=== PATIENT | male | born 1995 | race Asian ===

== ENCOUNTER 2017-09-18 02:16 | Observation (INO) | payer OTHER ==
[2017-09-18] MEDS ORDERED: Ondansetron INJ* 2 MG/ML VIAL IV ONE (02:35)
[2017-09-18] MEDS ORDERED: NS 0.9% 1000 ML* 1,000 ML IV ONE ×3 (02:35→06:06)
[2017-09-18] MEDS ORDERED: Pantoprazole IV* 40 MG IV ONE ×3 (02:35→05:18)
[2017-09-18 03:10] LABS: Hematocrit 32 % (42-52); Hemoglobin 10.8 g/dl (14.0-18.0); Mean Corpuscular HGB Conc 34 g/dl (31-36); Mean Corpuscular Hemoglobin 31 pg (27-31); Mean Corpuscular Volume 90 fL (80-94); Mean Platelet Volume 8 um3 (7.4-10.4); Red Blood Count 3.55 10^6/ul (4.0-5.4); Red Cell Distribution Width 13 % (10.5-15); White Blood Count 9.7 10^3/ul (3.5-10.8)
[2017-09-18 03:22] LABS: ALT 6 U/L (7-52); AST 12 U/L (13-39); Albumin 3.9 g/dL (3.2-5.2); Alkaline Phosphatase 37 U/L (34-104); Amylase 36 U/L (29-103); Anion Gap 6 mmol/L (2-11); BUN/Creatinine Ratio 69.8 (8-20); Blood Urea Nitrogen 44 mg/dL (6-24); C Reactive Protein < 1.00 mg/L (< 5.00); CO2 Carbon Dioxide 26 mmol/L (22-32); Calcium 8.7 mg/dL (8.6-10.3); Chloride 107 mmol/L (101-111); EGFR African American 206.8 (>60); EGFR Non-African American 160.8 (>60); Globulin 2.1 g/dL (2-4); Glucose 97 mg/dL (70-100); Lipase 18 U/L (11.0-82.0); Potassium 3.5 mmol/L (3.5-5.0); Sodium 139 mmol/L (133-145)
[2017-09-18] MEDS ORDERED: Magnesium CITRATE* 300 ML BTL PO ONE (03:40)
[2017-09-18] MEDS ORDERED: Bisacodyl SUPP* 10 MG SUPP PR ONE (03:41)
[2017-09-18 03:46] LABS: Immature Retic Fraction 0.31
[2017-09-18 03:47] LABS: Corrected Retic Count 0.6 % (0.5-1.5); Maturation Factor Retic 1.5
--- NOTE | 2017-09-18 04:59 | ED ---
Anjum Portillo Alfonso, scribed for Susanna Hester MD on 09/18/17 at 0240 . Complex/Multi-Sys Presentation - HPI Summary HPI Summary: This patient is a 22 year old M BIBA to [facility] with a chief complaint of two syncopal episodes earlier tonight. He states I collapsed twice in my dorm after I woke up and my stomach felt really weird, and I didnt realize I fell down I woke up and noticed I was on the floor. The patient rates the pain 0/10 in severity. Symptoms aggravated by nothing. Symptoms alleviated by spontaneous resolution. Patient reports 1 week of indigestion, bloating, nausea, loss of appetite, and dry heaving. Patient denies vomiting, and diarrhea. His last BM was in the afternoon. - History Of Current Complaint Chief Complaint: EDNauseaVomitDiarrh Hx Obtained From: Patient Onset/Duration: Sudden Onset, Lasting Hours, Resolved Timing: Intermittent, Lasting: Aggravating Factor(s): nothing Alleviating Factor(s): spontaneous resolution Associated Signs And Symptoms: Positive: Other - 1 week of indigestion, bloating , nausea, loss of appetite, and dry heaving. Patient denies vomiting, and diarrhea. - Allergies/Home Medications Allergies/Adverse Reactions: Allergies Allergy/AdvReac Type Severity Reaction Status Date / Time No Known Allergies Allergy Verified 09/18/17 02:25 Home Medications: Home Medications NK [No Home Medications Reported] 09/18/17 [History Confirmed 09/18/17] PMH/Surg Hx/FS Hx/Imm Hx Opthamlomology History: Denies: Hx Legally Blind EENT History: Denies: Hx Deafness Infectious Disease History: No Infectious Disease History: Denies: Traveled Outside the [place] in Last 30 Days - Family History Known Family History: Negative: Cardiac Disease, Diabetes - Social History Occupation: Student Lives: Dormitory/Roommates Alcohol Use: Occasionally Hx Substance Use: No Substance Use Type: Reports: None Hx Tobacco Use: No Smoking Status (MU): Never Smoked Tobacco Review of Systems Negative: Fever Positive: Other - 1 week of indigestion, bloating, nausea, loss of appetite, and dry heaving. Patient denies vomiting, and diarrhea. Positive: Syncope All Other Systems Reviewed And Are Negative: Yes Physical Exam - Summary Physical Exam Summary: VITAL SIGNS: Reviewed. GENERAL: Patient is a well-developed and nourished male who is lying comfortable in the stretcher. Patient is not in any acute respiratory distress. HEAD AND FACE: No signs of trauma. No ecchymosis, hematomas or skull depressions. No sinus tenderness. EYES: PERRLA, EOMI x 2, No injected conjunctiva, no nystagmus. EARS: Hearing grossly intact. Ear canals and tympanic membranes are within normal limits. MOUTH: Oropharynx within normal limits. NECK: Supple, trachea is midline, no adenopathy, no JVD, no carotid bruit, no c- spine tenderness, neck with full ROM. CHEST: Symmetric, no tenderness at palpation LUNGS: Clear to auscultation bilaterally. No wheezing or crackles. CVS: Regular rate and rhythm, S1 and S2 present, no murmurs or gallops appreciated. ABDOMEN: Soft, non-tender. No signs of distention. No rebound no guarding, and no masses palpated. Bowel sounds are hypoactive. RECTAL: Brown stool sent for occult blood. No hemorrhoids. EXTREMITIES: FROM in all major joints, no edema, no cyanosis or clubbing. NEURO: Alert and oriented x 3. No acute neurological deficits. Speech is normal and follows commands. SKIN: Pale, dry and warm Triage Information Reviewed: Yes Vital Signs On Initial Exam: Initial Vitals Temp Pulse Resp BP Pulse Ox 98 F 78 16 95/53 99 09/18/17 02:23 09/18/17 02:23 09/18/17 02:23 09/18/17 02:23 09/18/17 02:23 Vital Signs Reviewed: Yes - Adria Coma Scale Coma Scale Total: 15 Diagnostics - Vital Signs Vital Signs Temp Pulse Resp BP Pulse Ox 09/18/17 02:23 98 F 78 16 95/53 99 - Laboratory Result Diagrams: 09/18/17 03:00 09/18/17 03:00 Lab Statement: Any lab studies that have been ordered have been reviewed, and results considered in the medical decision making process. - Radiology Abd X-Ray Radiology Interpretation Completed By: ED Physician - constipation, Radiologist - Pending at this time. - EKG 0309 Cardiac Rate: NL EKG Rhythm: Sinus Rhythm - BPM 69 EKG Interpretation: Normal axis. No acute ischemic changes. Complex Multi-Symp Course/Dx Assessment/Plan: This patient is a 22 year old M BIBA to [facility] with a chief complaint of two syncopal episodes earlier tonight. He states I collapsed twice in my dorm after I woke up and my stomach felt really weird, and I didn t realize I fell down I woke up and noticed I was on the floor. The patient rates the pain 0/10 in severity. Symptoms aggravated by nothing. Symptoms alleviated by spontaneous resolution. Patient reports 1 week of indigestion, bloating, nausea, loss of appetite, and dry heaving. Patient denies vomiting, and diarrhea. His last BM was in the afternoon. An EKG reveals NSR. Abdominal XR reveals constipation. In the ED course the patient was given Zofran, Protonix , Dulcolax Supp, Citrate of Magnesia, and IV fluids. We discussed patient care with Dr. Araujo and they recommended admission. Patient will be admitted with follow up from Dr. Araujo. The patient is agreeable with this plan. - Diagnoses Provider Diagnoses: Upper GI bleed, Constipated - Physician Notifications Discussed Care Of Patient With: Mayela Araujo Time Discussed With Above Provider: 04:55 Instructed by Provider To: Other - Consulted Dr. Araujo (hospitalist) who agrees to admit. Discharge - Discharge Plan Condition: Stable Disposition: ADMITTED TO [facility] Referrals: No Primary Care Phys,NOPCP [Primary Care Provider] - The documentation as recorded by the Anjum salas Alfonso accurately reflects the service I personally performed and the decisions made by me, Susanna Hester MD.
[2017-09-18] MEDS ORDERED: Pantoprazole IV* 40 MG ONE (05:50)
[2017-09-18 05:52] LABS: Urine Bilirubin Negative (Negative); Urine Glucose Negative (Negative); Urine Nitrite Negative (Negative)
[2017-09-18] MEDS: Pantoprazole IV* 80 MG in NS 0.9% 250 ML* 250 ML IVPB SCH ×3 (06:03→17:28)
[2017-09-18] MEDS ORDERED: NS 0.9% 1000 ML* 1,000 ML IV SCH (06:15)
--- NOTE | 2017-09-18 07:40 | RAD ---
INDICATION: Nausea and constipation with syncopal episode. The patient reports taking Pepto-Bismol tablets. COMPARISON: None TECHNIQUE: Supine and upright views of the abdomen were obtained. FINDINGS: Punctate radiodense fragments overlying the expected location of the gastrointestinal tract are consistent with the report of taking Pepto-Bismol tablets. The small bowel and colon appear nondistended. No free intraperitoneal air is seen. No grossly abnormal or pathologic appearing calcifications are noted. Visualized bones are within normal limits for the patient's age. IMPRESSION: Normal abdominal radiograph.
--- NOTE | 2017-09-18 09:27 | HP ---
CC: [facility]* HISTORY AND PHYSICAL: DATE OF ADMISSION: 09/18/17 PRIMARY CARE PROVIDER: [facility]. CHIEF COMPLAINT: Syncope. 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 The patient states that, beginning last Thursday, he felt that his stomach was off. He describes having a lot of indigestion. He states he has been burping quite a bit and has been feeling bloating. He went to [facility] and was prescribed bismuth tablets. The patient states he was taking these over the last one week; however, did not improve his symptoms. The patient states that over the last couple of days, he has had a significant amount of burping and bloating. The patient states that he woke up at approximately midnight on the day of admission because of the discomfort in his abdomen. He was getting up to go to the bathroom and take bismuth tablets when the next thing he knew he woke up on the floor. The patient tried to climb up using the wall and again passed out. Once the patient came to again, he was able to call to his roommate's door and knock for help. The patient does admit to having a black stool this past Thursday morning. He denies any Advil or naproxen or aspirin use. However, he is not completely sure about the names of these medications. PAST MEDICAL HISTORY: None. PAST SURGICAL HISTORY: Circumcision. ALLERGIES: No known drug allergies. MEDICATIONS: Bismuth. FAMILY HISTORY: Mom is living; she is 49 and healthy. Dad is also living; he is 50 and healthy. SOCIAL HISTORY: The patient is a nonsmoker. He does not drink alcohol. 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 He is not . He has no children. REVIEW OF SYSTEMS: A complete 11-system review of systems is obtained, pertinent positives and negatives are as per HPI; and, in addition, the patient complains of poor appetite over the last one week. Otherwise review of systems is negative. PHYSICAL EXAMINATION GENERAL: The patient is a well-developed young, thin male sitting up in bed in no acute distress. VITAL SIGNS: Blood pressure 90/44, pulse 77, respirations 16, temp 98, O2 sat 100% on room air. HEENT: Pupils are equal. They are round. Extraocular muscles are intact. Oropharynx is clear. Oral mucosa is moist. There is no submandibular, cervical , or supraclavicular adenopathy. Thyroid is not enlarged. No thyroid nodules are noted. PULMONARY: Lungs are clear to auscultation bilaterally. CARDIAC: Normal S1, S2. Regular rate and rhythm. I do not appreciate any murmurs. ABDOMEN: Bowel sounds present. Abdomen is soft, nontender, nondistended. MUSCULOSKELETAL: There is no cyanosis or clubbing of the digits. There is full active range of motion of all 4 extremities. NEURO: Cranial nerves II through XII are grossly intact. Sensation is intact to light touch throughout. Strength is 5/5 and symmetric in both upper and lower extremities bilaterally. PSYCH: The patient is alert. He is oriented x3. Affect is appropriate. SKIN: Warm and dry. There are no rashes. DIAGNOSTIC STUDIES/LAB DATA: WBC 9.7, hemoglobin 10.8, hematocrit 32, platelets 185. INR is 1.27. Sodium 139, potassium 3.5, chloride 107, CO2 26, BUN 44, creatinine 0.63, glucose 97, calcium 8.7. Bilirubin 0.8, AST 12, ALT 6 , alk phos 37. CRP less than 1. Albumin 3.9, amylase 36, lipase 18. Urinalysis reveals clear urine with specific gravity of 1.023, and negative for signs of infection. Abdominal x-ray to my interpretation reveals stool within the colon; there is radiopaque flake-like material noted scattered within the abdomen. EKG reveals normal sinus rhythm with likely early repolarization. ASSESSMENT AND PLAN: Mr. Jain is a 22-year-old male with no significant past medical history or medication use who presents to the emergency room after having two syncopal episodes after awakening from sleep with abdominal discomfort. 1. Syncope. This likely represents vasovagal versus orthostatic syncope. The patient's blood pressure is currently slightly low; however, he is a thin young male, so his blood pressure may not be much higher than this at baseline. It is possible he became orthostatic secondary to a GI bleed. He has received 1 L of normal saline in the emergency room and will receive another 1 L bolus followed by 100 mL/hour. The patient did get up and walk to the bathroom in the ER and noted that initially when he stood he felt lightheaded; however, that did dissipate as he was up longer. 2. Likely upper gastrointestinal bleed. The patient describes having black stools. His hemoglobin and hematocrit are mildly reduced and this, in conjunction with the elevated BUN, makes me suspect he may be having an upper GI bleed. I question if the indigestion symptoms that he has been having are related to possibly a gastric ulcer. The patient will be started on Protonix as ordered by the ER provider. I will place a GI consultation for endoscopy later today. The patient denies any NSAID use; however, there is a slight language barrier and he is not completely sure of the medication names that I ask him about. 3. DVT prophylaxis. According to the Adult Thrombosis Prophylaxis Risk Factor Assessment Guide, the patient has a total risk factor score of 0 making him low risk. Ambulation will be utilized for DVT prophylaxis. 4. Code status is full. TIME SPENT: Fifty minutes were spent admitting this patient. [id number]/[facility] #: [id number] [facility]
[2017-09-18] MEDS ORDERED: Meperidine SYRINGE* 50 MG/ML ONE (13:59)
[2017-09-18] MEDS ORDERED: Midazolam* 1 MG/ML 10 ML VIAL (10 MG) ONE (13:59)
[2017-09-18 15:23] LABS: Hematocrit 25 % (42-52); Hemoglobin 8.5 g/dl (14.0-18.0)
[2017-09-18 17:21] LABS: Mean Corpuscular HGB Conc 34 g/dl (31-36); Mean Corpuscular Hemoglobin 31 pg (27-31); Mean Corpuscular Volume 90 fL (80-94); Mean Platelet Volume 9 um3 (7.4-10.4); Red Blood Count 2.77 10^6/ul (4.0-5.4); Red Cell Distribution Width 13 % (10.5-15); White Blood Count 6.5 10^3/ul (3.5-10.8)
--- NOTE | 2017-09-18 18:30 | PN ---
Subjective Date of Service: 09/18/17 Interval History: Patient seen and examined at bedside. Denies fever, chills, shortness of breath , chest discomfort, N/V/D. Pt continues to have left upper quad abd pain that he describes as a "bitting". Family History: Unchanged from Admission Social History: Unchanged from Admission Past Medical History: Unchanged from Admission Objective Active Medications: Pantoprazole Sodium 80 mg/ (Sodium Chloride) 250 mls @ 25 mls/hr IVPB Q10H ANGELLA Sodium Chloride (Ns 0.9% 1000 Ml*) 1,000 mls @ 100 mls/hr IV PER RATE ANGELLA Vital Signs 09/18/17 09/18/17 09/18/17 06:03 06:30 06:58 Temperature Pulse Rate 73 66 68 Respiratory Rate Blood Pressure 96/52 103/60 (mmHg) O2 Sat by Pulse 100 99 100 Oximetry 09/18/17 09/18/17 09/18/17 07:00 09:00 11:32 Temperature 98.5 F 97.9 F Pulse Rate 68 80 61 Respiratory 16 16 Rate Blood Pressure 99/56 106/54 88/43 (mmHg) O2 Sat by Pulse 99 100 98 Oximetry 09/18/17 09/18/17 09/18/17 15:14 15:20 15:44 Temperature 98.5 F 98.5 F Pulse Rate 76 76 80 Respiratory 12 12 16 Rate Blood Pressure 99/47 99/47 91/48 (mmHg) O2 Sat by Pulse 100 100 100 Oximetry Oxygen Devices in Use Now: None Appearance: NAD, laying in bed Ears/Nose/Mouth/Throat: Mucous Membranes Moist Respiratory: Symmetrical Chest Expansion and Respiratory Effort, Clear to Auscultation Cardiovascular: NL Sounds; No Murmurs; No JVD, RRR Abdominal: NL Sounds; No Tenderness; No Distention Extremities: No Edema Skin: No Rash or Ulcers Neurological: Alert and Oriented x 3, NL Muscle Strength and Tone Lines/Tubes/Other Access: Clean, Dry and Intact Peripheral IV - site bengin Nutrition: Taking PO's Result Diagrams: 09/18/17 15:15 09/18/17 03:00 Assess/Plan/Problems-Billing Assessment: Mr. Jain (goes by Bruce) is a 22 yo male with no significant PMH who presented to the emergency room after 2 syncopal episodes at home and was found to have a possible GI bleed. - Patient Problems (1) Syncope Code(s): R55 - SYNCOPE AND COLLAPSE SNOMED Code(s): 106369206 Comment: - Suspect vasovagal vs orthostatic syncope - No orthostasis noted (2) GI bleed Code(s): K92.2 - GASTROINTESTINAL HEMORRHAGE, UNSPECIFIED SNOMED Code(s): 49517743 Comment: - Anemic - Guaiac positive - Pt reports taking Pepto ? cause of dark stool - Pt denies signs of bleeding at this time - HH down on recheck today, suspect secondary to dilution - EGD negative - Continue to trend HH (3) Anemia Code(s): D64.9 - ANEMIA, UNSPECIFIED SNOMED Code(s): 424627079 Comment: - Normocytic - Pt will need continued anemia work-up outpatient (4) DVT prophylaxis Code(s): CME3246 - SNOMED Code(s): 434747632 Comment: - Chemical DVT prophylaxis contraindicated in setting of possible GI bleed - Encourage ambulation (5) Full code status Code(s): Z78.9 - OTHER SPECIFIED HEALTH STATUS SNOMED Code(s): 762102545 Status and Disposition: OBV. Discharge to home when medically stable, possibly in the AM.
[2017-09-18 21:55] LABS: Hematocrit 24 % (42-52)
--- NOTE | 2017-09-19 00:03 | CONS ---
CC: [facility] * CONSULTATION REPORT: DATE OF CONSULT: 09/18/17 INDICATION FOR CONSULT: Anemia. 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 He states that he has been having upset stomach and burping a large amount of gas. He went to see a provider at [facility], who prescribed him with Pepto-Bismol. He woke up this morning and went to the bathroom and passed out. He denies any nausea or vomiting. He states that his stools have been black, but he has been taking a fair amount of Pepto-Bismol. He denies any Advil, ibuprofen, or nonsteroidal use. PAST MEDICAL HISTORY: None. PAST SURGICAL HISTORY: None. CURRENT MEDICATIONS: None except Pepto-Bismol. ALLERGIES: None. FAMILY HISTORY: Mom has had H. pylori. SOCIAL HISTORY: No tobacco or alcohol. REVIEW OF SYSTEMS: Twelve systems are reviewed, other than that mentioned in the HPI were unremarkable. PHYSICAL EXAM: Blood pressure is 103/60, pulse is 68, temperature is 98.0. General: Well-appearing male, in no apparent distress. Alert, oriented, pleasant, and fluent. HEENT: Mucous membranes are moist without lesions, ulcers, or exudate. Neck is supple. Trachea is midline. Head is normocephalic and atraumatic. Heart: Regular rate and rhythm. No murmurs, rubs, or gallops. Lungs: Clear to auscultation bilaterally. No wheezes, rales, or rhonchi. Abdomen: Positive bowel sounds, soft, nontender, nondistended. No hepatosplenomegaly, masses, rebound, or guarding. Skin: Warm and dry. No rashes or ulcers. Musculoskeletal: No CVA or spinal tenderness to palpation. Lymph: No supraclavicular or cervical lymphadenopathy. Psych: Normal affect, cooperative, pleasant. LABORATORY DATA: Of note, white count is 9.7, hemoglobin is 10.8, platelets of 185. INR is 1.27. BUN is 44, creatinine is 0.63. AST is 12, ALT is 6. Albumin is 3.9. ASSESSMENT AND PLAN: A 22-year-old gentleman with syncope and anemia. We will begin his evaluation with an EGD. I will make arrangements for today. [id number]/[facility] #: [id number] [facility]
[2017-09-19 02:51] LABS: Hematocrit 24 % (42-52); Mean Corpuscular HGB Conc 34 g/dl (31-36); Mean Corpuscular Hemoglobin 31 pg (27-31); Mean Corpuscular Volume 91 fL (80-94); Mean Platelet Volume 9 um3 (7.4-10.4); Red Blood Count 2.59 10^6/ul (4.0-5.4); Red Cell Distribution Width 13 % (10.5-15); White Blood Count 6.1 10^3/ul (3.5-10.8)
[2017-09-19 02:59] LABS: BUN/Creatinine Ratio 23.7 (8-20); Calcium 8.4 mg/dL (8.6-10.3); EGFR African American 166.5 (>60); EGFR Non-African American 129.5 (>60); Potassium 3.5 mmol/L (3.5-5.0)
[2017-09-19] MEDS: Pantoprazole IV* 80 MG in NS 0.9% 250 ML* 250 ML IVPB SCH ×2 (06:07→15:37)
--- NOTE | 2017-09-19 06:20 | PRO ---
CC: [facility] * DATE OF PROCEDURE: 09/18/17 - ROOM #415 PROCEDURE: EGD. INDICATION: Anemia, iron deficiency. REFERRING PHYSICIAN: Dr. Araujo. MEDICATIONS GIVEN: 25 mg IV Demerol, 4 mg IV Versed. DESCRIPTION OF PROCEDURE: After the EGD procedure, including the risks, benefits, and alternatives, not limited to perforation, surgery and/or were explained to Mr. Jain, written consent was then obtained. IV medication was given and a bite- block was placed between the teeth. An Olympus gastroscope was then inserted into the patient's mouth, advanced down the esophagus, into the stomach, and into the distal duodenum. In the esophagus, at the GE junction , Z-line was intact. No erosive esophagitis, stricture or ring was seen. The scope was advanced through the GE junction into the body of the stomach. Retroflex and forward views were unremarkable. He does have a medium size hiatal hernia. No erosive esophagitis is seen. No ulcers were seen. No Len's erosions were seen within the hiatal hernia sac. Biopsy was obtained for H. pylori. Scope was advanced through a widely patent pylorus and duodenal bulb into the distal duodenum, both of which were unremarkable. Biopsies were obtained for celiac disease. The scope was withdrawn from the patient. He tolerated the procedure well and was returned to his hospital room in stable condition. IMPRESSION: 1. Complete upper endoscopy into the distal duodenum with biopsies. 2. Medium size hiatal hernia. 3. No etiology was seen for his elevated BUN or his anemia. He will need an outpatient workup for his anemia. [id number]/[facility] #: [id number] [facility]
[2017-09-19 08:45] LABS: Hematocrit 23 % (42-52)
[2017-09-19 11:15] LABS: Immature Retic Fraction 0.43
[2017-09-19 11:16] LABS: Corrected Retic Count 0.5 % (0.5-1.5)
[2017-09-19 11:35] LABS: Ferritin 144.7 ng/mL (24-336)
[2017-09-19 11:39] LABS: Folate 12.59 ng/mL (>3.99)
[2017-09-19 14:42] VITALS: BP 117/53
--- NOTE | 2017-09-19 14:57 | PN ---
Subjective Date of Service: 09/19/17 Interval History: Pt reports he feels much better today and would like to go home. No signs of bleeding; no BMs. No further gas and bloating. Reports he has dizziness when standing at his baseline for "as long as I can remember" - today he reports a little dizziness when standing once but states this is normal for him. Orthostatic BPs normal. Ambulated around unit with steady gait. Discussed discharge plan and he agrees. Family History: Unchanged from Admission Social History: Unchanged from Admission Past Medical History: Unchanged from Admission Objective Active Medications: Pantoprazole Sodium 80 mg/ (Sodium Chloride) 250 mls @ 25 mls/hr IVPB Q10H ANGELLA Last Admin: 09/19/17 06:07 Dose: 25 mls/hr Vital Signs 09/18/17 09/18/17 09/18/17 15:14 15:20 15:44 Temperature 98.5 F 98.5 F Pulse Rate 76 76 80 Respiratory 12 12 16 Rate Blood Pressure 99/47 99/47 91/48 (mmHg) O2 Sat by Pulse 100 100 100 Oximetry 09/18/17 09/19/17 09/19/17 19:41 00:43 01:29 Temperature 97.7 F 97.7 F Pulse Rate 81 62 Respiratory 16 12 12 Rate Blood Pressure 100/47 89/46 (mmHg) O2 Sat by Pulse 100 99 Oximetry 09/19/17 09/19/17 09/19/17 03:34 10:21 14:40 Temperature 97.4 F 98.9 F Pulse Rate 76 69 Respiratory 20 17 Rate Blood Pressure 92/49 105/50 117/53 (mmHg) O2 Sat by Pulse 99 99 Oximetry Oxygen Devices in Use Now: None Appearance: young healthy appearing male A+O x3 in NAD Eyes: No Scleral Icterus, PERRLA Ears/Nose/Mouth/Throat: NL Teeth, Lips, Gums, Mucous Membranes Moist Neck: NL Appearance and Movements; NL JVP Respiratory: Symmetrical Chest Expansion and Respiratory Effort, Clear to Auscultation Cardiovascular: NL Sounds; No Murmurs; No JVD, RRR, No Edema Abdominal: NL Sounds; No Tenderness; No Distention Lymphatic: No Cervical Adenopathy Extremities: No Edema, No Clubbing, Cyanosis Skin: No Rash or Ulcers, No Nodules or Sclerosis Neurological: Alert and Oriented x 3, NL Sensation, NL Gait, NL Muscle Strength and Tone Lines/Tubes/Other Access: Clean, Dry and Intact Peripheral IV Nutrition: Taking PO's Result Diagrams: 09/19/17 08:02 09/19/17 02:37 Microbiology and Other Data: Microbiology 09/18/17 14:32 CLOtest - Final Gastric Antrum Assess/Plan/Problems-Billing Assessment: Mr. Jain (goes by Bruce) is a 22 yo male with no significant PMH who presented to the emergency room after 2 syncopal episodes at home and was found to have a possible GI bleed. - Patient Problems (1) Anemia Comment: - Normocytic. Unclear etiology. stable. - Iron, B12, folate normal (2) GI bleed Comment: - Unlcear etiology. Upper endoscopy normal. CloTest negative. possible AVM bleed ? Also do not have a baseline HH and most likely partly dilutional. - Guaiac positive - Pt reports taking Peptoprior to hospitalization - Pt denies signs of bleeding at this time - f/u with GI as outpt (3) Syncope Comment: - Suspect vasovagal vs orthostatic syncope - No orthostasis noted - Encourage increasing fluid intake (4) DVT prophylaxis Comment: - Chemical DVT prophylaxis contraindicated in setting of possible GI bleed - Encourage ambulation (5) Full code status Status and Disposition: OBV. Discharge to home today. Plan to follow up with Katharina on Thursday, recheck CBC. F/u with GI as outpt.
--- NOTE | 2017-09-20 08:52 | DS ---
CC: Rhoda Rosario; Primary Care Provider at [facility] [place] * DISCHARGE SUMMARY: DATE OF ADMISSION: 09/18/17 DATE OF DISCHARGE: 09/19/17 PROVIDER: MARIE Lewis. ATTENDING PHYSICIAN: Russell Lacey MD * (report dictated by Jillian Morales NP). PRIMARY CARE PROVIDER: [facility]. DISCHARGE DIAGNOSES: 1. Syncope, thought to be secondary to vasovagal versus orthostatic hypotension. 2. Normocytic anemia, unclear etiology. 3. Possible gastrointestinal bleed. DISCHARGE MEDICATIONS: No home medications. HISTORY OF PRESENT ILLNESS AND HOSPITAL COURSE: Please see history and physical by Dr. 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 He reported that beginning approximately a week ago, he felt that his stomach has been off describing indigestion with bubbly sensation and bloating with quite a lot of burping. He was seen at [facility] and was prescribed bismuth tablets, which he states he has been taking them for the past week, which did not improve his symptoms. He then woke up at approximately mid night the day of admission because of discomfort in his abdomen and he jumped out of bed to go to the bathroom to take a bismuth tablet and the next thing he knew he woke up on the floor. He reported that he tried to get up at that time and he passed out again. Once the patient came to, he called to his roommate and he was brought to the emergency department for further evaluation. The patient did admit to having a black stool three days before his hospitalization. He denied any other further dark tarry or bloody stools. No vomiting blood. He denied using any Advil, naproxen, or aspirin. On admission, he was noted to have a hemoglobin of 10.8 and hematocrit of 32. He had an INR of 1.27. He was admitted to the hospitalist service and his H and H were trended and he was seen in consultation by warehouse freight handler, Dr. Huffman, who performed an upper endoscopy on the patient on 09/18/17. The upper endoscopy was normal with no noted esophagitis or ulcers. It did note he has a medium-sized hiatal hernia. Biopsy was taken for H. pylori, which is negative. Per the warehouse freight handler, no etiology was seen for his anemia. It is also should be noted that on admission, his BUN was noted to be 44 and was felt that this is possibly upper GI at some sort. Today, his BUN has normalized. He has had no obvious signs of bleeding. His hemoglobin and hematocrit did drop to 8 and 24 but this has remained stable x4 blood draws and most likely this is partly dilutional from the IV fluids he has received. Again , unclear etiology behind the patient's possible GI bleed. His iron studies showed that he has normal iron levels, normal ferritin, normal B12 and folate with mildly elevated TIBC. It is possible that he had a small AVM rupture. Today on evaluation, he is stable and ambulating around the unit and would like to go home. His blood pressures have been noted to be on the softer side, however, he is not found to be orthostatic. He does report some mild dizziness when standing, but states that he has had this "all my life". My guess that he is a thin male, most likely his normal blood pressures are on the softer side. He reports that he does not drink lot of fluids and he has been encouraged to keep himself well hydrated. I discussed the discharge plan with the patient. He feels safe for discharge home as well as he is stable for discharge. He is to follow up with Katharina on Thursday and have his labs rechecked as well as follow up with Dr. Huffman as an outpatient. I reviewed his discharge plan and he states understanding. He was instructed to return to the emergency department with any further or concerning symptoms. DISCHARGE PLANNIN. Follow up with Katharina on Thursday with a provider and recheck CBC. 2. Follow up with Dr. Huffman, warehouse freight handler. 3. Return to the emergency department with any further concerning symptoms. 4. I did discuss with the patient to try to obtain records from his primary care provider of his blood pressure trends as well as last set of labs. He has been in contact with his parents as well as he plans to get a copy of his hospitalization and sent to his primary care provider in [facility]. He has signed a consent for release and will follow up on this on Thursday, as he does not know his primary care provider name in [facility]. The patient is stable for discharge to home. JILLIAN MORALES, SIGN LANGUAGE INTERPRETER [id number]/[facility] #: [id number] DOCTORS HOSPITALAdolfo
== END 2017-09-19 16:00 | disposition home or self-care (01) ==
LOC: ED 02:16 → MED 06:01 → ED 07:35
PROVIDERS: ADMIT Hospitalist; ATTEND Hospitalist
PROC: 0DB98ZX Excision of Duodenum, Via Natural or Artificial Opening Endoscopic, Diagnostic (ICD-10-PCS; principal; 2017-09-18)
PROC: 0DB68ZX Excision of Stomach, Via Natural or Artificial Opening Endoscopic, Diagnostic (ICD-10-PCS; 2017-09-18)
DX: R55 Syncope and collapse (principal); D50.9 Iron deficiency anemia, unspecified; K30 Functional dyspepsia; R11.0 Nausea; K44.9 Diaphragmatic hernia without obstruction or gangrene; R19.5 Other fecal abnormalities
CPT/HCPCS: 36415; 74020; 80048; 80053; 81003; 82150; 82270; 82607; 82728; 82746; 83540; 83550; 83690; 85014; 85018; 85025; 85027; 85045; 85610; 85730; 86140; 86850; 86900; 86901; 87077; 88305; 93005; 96361; 96374; 96375; 96376; 99156; 99285; G0378; J2250; J2310; J2405

== ENCOUNTER 2017-09-19 19:44 | Emergency (ER) | payer OTHER ==
[2017-09-19] MEDS ORDERED: Pantoprazole IV* 40 MG IV ONE (21:00)
[2017-09-19 21:43] LABS: Corrected Retic Count 0.8 % (0.5-1.5); Hematocrit 26 % (42-52); Hemoglobin 9.1 g/dl (14.0-18.0); Immature Retic Fraction 0.44; Mean Corpuscular HGB Conc 35 g/dl (31-36); Mean Corpuscular Hemoglobin 31 pg (27-31); Mean Corpuscular Volume 90 fL (80-94); Mean Platelet Volume 9 um3 (7.4-10.4); Red Blood Count 2.92 10^6/ul (4.0-5.4); Red Cell Distribution Width 13 % (10.5-15)
[2017-09-19 21:44] LABS: Add Diff/Slide Review? Slide Review Added
[2017-09-19 21:58] LABS: Albumin 4.1 g/dL (3.2-5.2); BUN/Creatinine Ratio 16.7 (8-20); Calcium 8.8 mg/dL (8.6-10.3); EGFR African American 161.6 (>60); EGFR Non-African American 125.6 (>60); Potassium 3.3 mmol/L (3.5-5.0); Total Bilirubin 0.3 mg/dL (0.2-1.0); Total Protein 6.1 g/dL (6.4-8.9)
[2017-09-19 22:01] LABS: Urine Bacteria Absent (Absent); Urine Bilirubin Negative (Negative); Urine Glucose Negative (Negative); Urine Nitrite Negative (Negative)
[2017-09-19 22:34] LABS: Folate 13.25 ng/mL (>3.99)
[2017-09-20] MEDS ORDERED: Iohexol 300* (CONTRAST) 10 ML SDV IV ONE (00:38)
[2017-09-20 04:25] LABS: Hematocrit 28 % (42-52); Hemoglobin 9.5 g/dl (14.0-18.0); Mean Corpuscular HGB Conc 34 g/dl (31-36); Mean Corpuscular Hemoglobin 31 pg (27-31); Mean Corpuscular Volume 89 fL (80-94); Mean Platelet Volume 8 um3 (7.4-10.4); Red Blood Count 3.11 10^6/ul (4.0-5.4); Red Cell Distribution Width 13 % (10.5-15); White Blood Count 8.5 10^3/ul (3.5-10.8)
--- NOTE | 2017-09-20 04:52 | ED ---
Anjum Portillo Alfonso, scribed for Ab Burnett MD on 09/19/17 at 2104 . GI/ HPI - HPI Summary HPI Summary: This patient is a 22 year old M presenting to [facility] with a chief complaint of black sticky, smelly, and a little bit of purplish liquid stool noted after a BM a few hours ago. He was admitted to [facility] yesterday and discharged at 1630 today. He was seen by GI and had an endoscopy suspecting ulcer. The patient rates the pain 0/10 in severity. Symptoms alleviated by nothing. Patient reports dizziness. - History of Current Complaint Chief Complaint: EDGIBleed Stated Complaint: BLOOD IN STOOL Hx Obtained From: Patient Onset/Duration: Started Hours Ago, Still Present Timing: Constant Pain Intensity: 0 - /10 Associated Signs and Symptoms: Positive: Dizziness Alleviating Factor(s): Nothing - Additional Pertinent History Primary Care Physician: JAYLEN - Allergy/Home Medications Allergies/Adverse Reactions: Allergies Allergy/AdvReac Type Severity Reaction Status Date / Time No Known Allergies Allergy Verified 09/18/17 02:25 PMH/Surg Hx/FS Hx/Imm Hx Sensory History: Reports: Hx Contacts or Glasses Denies: Hx Legally Blind, Hx Deafness, Hx Hearing Aid Opthamlomology History: Reports: Hx Contacts or Glasses Denies: Hx Legally Blind Infectious Disease History: No Infectious Disease History: Denies: Traveled Outside the [place] in Last 30 Days - Family History Known Family History: Negative: Cardiac Disease, Diabetes - Social History Alcohol Use: None Hx Substance Use: No Substance Use Type: Reports: None Hx Tobacco Use: No Smoking Status (MU): Never Smoked Tobacco Review of Systems Positive: Other - black sticky, smelly, and a little bit of purplish liquid stool Neurological: Other - Dizzy All Other Systems Reviewed And Are Negative: Yes Physical Exam - Summary Physical Exam Summary: Appearance: Well-appearing, Well-nourished Skin: Warm, slightly pale Eyes: Normal, normal conjunctiva ENT: Normal Neck: Supple, nontender Respiratory: Clear to auscultation Cardiovascular: Normal Abdomen: Soft, mild epigastric tenderness Bowel: Present Rectal: Dark and tarry stool Musculoskeletal: Strength/ROM Intact Neurological: Normal, A&Ox3 Psychiatric: Normal Triage Information Reviewed: Yes Vital Signs On Initial Exam: Initial Vitals Temp Pulse Resp BP Pulse Ox 100.3 F 92 16 105/55 98 09/19/17 19:57 09/19/17 19:57 09/19/17 19:57 09/19/17 19:57 09/19/17 19:57 Vital Signs Reviewed: Yes Diagnostics - Vital Signs Vital Signs Temp Pulse Resp BP Pulse Ox 09/19/17 19:57 100.3 F 92 16 105/55 98 - Laboratory Lab Results: Lab Results 09/19/17 09/19/17 09/19/17 Range/Units 21:30 21:30 21:30 WBC 8.0 (3.5-10.8) 10^3/ul RBC 2.92 L (4.0-5.4) 10^6/ul RBC (Retic) 2.92 L (4.6-6.2) 10^6/ul Hgb 9.1 L (14.0-18.0) g/dl Hct 26 L (42-52) % HCT (Retic) 26 L (42-52) % MCV 90 (80-94) fL MCH 31 (27-31) pg MCHC 35 (31-36) g/dl RDW 13 (10.5-15) % Plt Count 160 (150-450) 10^3/ul MPV 9 (7.4-10.4) um3 Neut % (Auto) 62.8 (38-83) % Lymph % (Auto) 29.4 (25-47) % Barnes % (Auto) 6.5 (1-9) % Eos % (Auto) 0.5 (0-6) % Baso % (Auto) 0.8 (0-2) % Absolute Neuts (auto) 5.0 (1.5-7.7) 10^3/ul Absolute Lymphs (auto) 2.4 (1.0-4.8) 10^3/ul Absolute Monos (auto) 0.5 (0-0.8) 10^3/ul Absolute Eos (auto) 0 (0-0.6) 10^3/ul Absolute Basos (auto) 0.1 (0-0.2) 10^3/ul Absolute Nucleated RBC 0 10^3/ul Nucleated RBC % 0 Retic Count, Calc 1.3 (0.5-1.5) % Corrected Retic Count 0.8 (0.5-1.5) % Retic Shift Factor 2.0 Retic Production Index 0.40 Immature Retic Fraction 0.44 Mean Retic Volume 113.0 INR (Anticoag Therapy) 1.14 H (0.89-1.11) APTT 32.4 (26.0-36.3) seconds Sodium 137 (133-145) mmol/L Potassium 3.3 L (3.5-5.0) mmol/L Chloride 106 (101-111) mmol/L Carbon Dioxide 28 (22-32) mmol/L Anion Gap 3 (2-11) mmol/L BUN 13 (6-24) mg/dL Creatinine 0.78 (0.67-1.17) mg/dL Est GFR ( Amer) 161.6 (>60) Est GFR (Non-Af Amer) 125.6 (>60) BUN/Creatinine Ratio 16.7 (8-20) Glucose 94 (70-100) mg/dL Lactic Acid (0.5-2.0) mmol/L Calcium 8.8 (8.6-10.3) mg/dL Magnesium 2.0 (1.9-2.7) mg/dL Total Bilirubin 0.30 (0.2-1.0) mg/dL AST 14 (13-39) U/L ALT 7 (7-52) U/L Alkaline Phosphatase 33 L (34-104) U/L Lactate Dehydrogenase 113 L (140-271) U/L Total Protein 6.1 L (6.4-8.9) g/dL Albumin 4.1 (3.2-5.2) g/dL Globulin 2.0 (2-4) g/dL Albumin/Globulin Ratio 2.1 (1-3) Amylase 52 (29-103) U/L Lipase 39 (11.0-82.0) U/L Vitamin B12 295 (180-914) pg/mL Folate 13.25 (>3.99) ng/mL Urine Color Urine Appearance Urine pH (5-9) Ur Specific [place] (1.010-1.030) Urine Protein (Negative) Urine Ketones (Negative) Urine Blood (Negative) Urine Nitrate (Negative) Urine Bilirubin (Negative) Urine Urobilinogen (Negative) Ur Leukocyte Esterase (Negative) Urine WBC (Auto) (Absent) Urine RBC (Auto) (Absent) Ur Squamous Epith Cells (Absent) Urine Bacteria (Absent) Urine Glucose (Negative) 09/19/17 09/19/17 09/20/17 Range/Units 21:30 21:30 04:10 WBC 8.5 (3.5-10.8) 10^3/ul RBC 3.11 L (4.0-5.4) 10^6/ul RBC (Retic) (4.6-6.2) 10^6/ul Hgb 9.5 L (14.0-18.0) g/dl Hct 28 L (42-52) % HCT (Retic) (42-52) % MCV 89 (80-94) fL MCH 31 (27-31) pg MCHC 34 (31-36) g/dl RDW 13 (10.5-15) % Plt Count 179 (150-450) 10^3/ul MPV 8 (7.4-10.4) um3 Neut % (Auto) 57.3 (38-83) % Lymph % (Auto) 34.7 (25-47) % Barnes % (Auto) 6.3 (1-9) % Eos % (Auto) 0.6 (0-6) % Baso % (Auto) 1.1 (0-2) % Absolute Neuts (auto) 4.9 (1.5-7.7) 10^3/ul Absolute Lymphs (auto) 2.9 (1.0-4.8) 10^3/ul Absolute Monos (auto) 0.5 (0-0.8) 10^3/ul Absolute Eos (auto) 0.1 (0-0.6) 10^3/ul Absolute Basos (auto) 0.1 (0-0.2) 10^3/ul Absolute Nucleated RBC 0 10^3/ul Nucleated RBC % 0 Retic Count, Calc (0.5-1.5) % Corrected Retic Count (0.5-1.5) % Retic Shift Factor Retic Production Index Immature Retic Fraction Mean Retic Volume INR (Anticoag Therapy) (0.89-1.11) APTT (26.0-36.3) seconds Sodium (133-145) mmol/L Potassium (3.5-5.0) mmol/L Chloride (101-111) mmol/L Carbon Dioxide (22-32) mmol/L Anion Gap (2-11) mmol/L BUN (6-24) mg/dL Creatinine (0.67-1.17) mg/dL Est GFR ( Amer) (>60) Est GFR (Non-Af Amer) (>60) BUN/Creatinine Ratio (8-20) Glucose (70-100) mg/dL Lactic Acid 0.6 (0.5-2.0) mmol/L Calcium (8.6-10.3) mg/dL Magnesium (1.9-2.7) mg/dL Total Bilirubin (0.2-1.0) mg/dL AST (13-39) U/L ALT (7-52) U/L Alkaline Phosphatase (34-104) U/L Lactate Dehydrogenase (140-271) U/L Total Protein (6.4-8.9) g/dL Albumin (3.2-5.2) g/dL Globulin (2-4) g/dL Albumin/Globulin Ratio (1-3) Amylase (29-103) U/L Lipase (11.0-82.0) U/L Vitamin B12 (180-914) pg/mL Folate (>3.99) ng/mL Urine Color Yellow Urine Appearance Clear Urine pH 6.0 (5-9) Ur Specific [place] 1.017 (1.010-1.030) Urine Protein Negative (Negative) Urine Ketones Trace H (Negative) Urine Blood 1+ H (Negative) Urine Nitrate Negative (Negative) Urine Bilirubin Negative (Negative) Urine Urobilinogen Negative (Negative) Ur Leukocyte Esterase Negative (Negative) Urine WBC (Auto) Absent (Absent) Urine RBC (Auto) Trace(0-2/hpf) (Absent) Ur Squamous Epith Cells Present H (Absent) Urine Bacteria Absent (Absent) Urine Glucose Negative (Negative) Result Diagrams: 09/20/17 04:10 09/19/17 21:30 Lab Statement: Any lab studies that have been ordered have been reviewed, and results considered in the medical decision making process. - CT A/P CT Interpretation Completed By: Radiologist - No localizing signs for acute pathology. Trace pelvic free fluid could be physiologic. ED physician has reviewed this radiology report and agrees. GIGU Course/Dx - Course Assessment/Plan: despite stable hemoglobin pt still symptomatic lightheaded, ct negative, accepted for txfer to [facility] for further eval adn GI evaluation. - Diagnoses Provider Diagnoses: Gastrointestinal hemorrhage with melena - Physician Notifications Discussed Care Of Patient With: campbell Admit/Transition Orders Completed By ED Provider: Yes Discharge - Discharge Plan Condition: Stable Disposition: TRANS HIGHER LVL OF CARE FAC Referrals: [facility] [Primary Care Provider] - The documentation as recorded by the Anjum salas Alfonso accurately reflects the service I personally performed and the decisions made by me, Ab Burnett MD.
[2017-09-20 05:07] VITALS: BP 116/58
--- NOTE | 2017-09-20 08:49 | PN ---
Progress Note - Progress Note Date of Service: 09/20/17 Note: Patient is guaiac positive. patient transferred to [facility] for GI bleed. no further action at this time.
--- NOTE | 2017-09-20 11:31 | RAD ---
CLINICAL HISTORY: GI mass. Clinical suspicion for "Meckel's" COMPARISON: Plain film radiograph of the abdomen dated September 18, 2017 TECHNIQUE: Contrast enhanced CT examination of the abdomen and pelvis from the lung bases through the initial tuberosities. The patient received 80 mL Omnipaque 300 intravenously prior to imaging.The patient received oral contrast as well prior to imaging. FINDINGS: VISUALIZED LUNG BASES: The visualized lung bases are grossly clear. There is no pleural effusion. ABDOMEN AND PELVIS: The liver, spleen, pancreas and adrenal glands are grossly normal in appearance. The gallbladder is normal. The kidneys are normal in appearance without focal mass, calcification or signs of hydronephrosis. The oral contrast as progressed as far as the distal small bowel which prevents thorough evaluation of the terminal ileum and colon. The small and large bowel are not distended. Hyperattenuating material seen throughout much of the colon which is most consistent with bismuth salicylate found in Pepto-Bismol tablets. The patient's normal appendix is identified in the right lower quadrant. There is no gross retroperitoneal or mesenteric lymphadenopathy. The pelvic viscera is normal in appearance. There is trace free fluid in the pelvis (axial image 73 of 92 of indeterminate clinical significance. The abdominal aorta and iliac arteries are normal in course and diameter. There are no sinister bone lesions. IMPRESSION: Essentially normal CT examination. There is trace fluid in the pelvis which can be physiologic.
== END 2017-09-20 05:14 | disposition short-term general hospital (02) ==
LOC: ED 19:44
DX: K92.2 Gastrointestinal hemorrhage, unspecified (principal); K92.1 Melena
CPT/HCPCS: 36415; 74177; 80053; 81003; 81015; 82150; 82272; 82607; 82746; 83605; 83615; 83690; 83735; 85025; 85045; 85610; 85730; 99282; Q9967